=== PATIENT | female | born 1965 | race Two or more races ===

== ENCOUNTER → 2017-10-23 14:36 | Outpatient (CLI) | payer OTHER ==
[~2017-10-23 14:36] MED LIST: GLUCOPHAGE XR500 MG; GLUCOTROL10 MG; HYZAAR 50-12.1 UDTAB; LANTUS100 U/ML
== END | disposition home or self-care (01) ==
LOC: LAB 14:36
DX: D50.8 Other iron deficiency anemias (principal)

== ENCOUNTER 2018-04-28 07:19 | Outpatient (CLI) | payer OTHER | END 2018-04-28 11:14 | disposition home or self-care (01) | LOC: NUCLEAR 07:19 | DX: E04.2 Nontoxic multinodular goiter (principal) | CPT/HCPCS: 78013; A9512 ==

== ENCOUNTER 2018-05-01 08:01 | Outpatient (CLI) | payer OTHER | END 2018-05-01 08:08 | disposition home or self-care (01) | LOC: SONOGRAMA 08:01 | DX: E04.2 Nontoxic multinodular goiter (principal) ==

== ENCOUNTER 2018-05-14 11:00 | Outpatient (CLI) | payer OTHER ==
[2018-05-15] MEDS ORDERED: WELLBUTRIN SR150 MG PO (11:37)
[2018-05-15] MEDS ORDERED: SEROQUEL XR150 MG PO (11:37)
[2018-05-15] MEDS ORDERED: CLONAZEPAM2 M1 PO (11:37)
[2018-05-15] MEDS ORDERED: SYNTHROID50 MCG PO (11:38)
[2018-05-15] MEDS ORDERED: METFORMIN HCL500 MG PO (11:38)
[2018-05-15] MEDS ORDERED: CARAFATE1 GM PO (11:38)
[2018-05-22] MEDS ORDERED: PERCOCET 5-3251 EACH PO (08:18)
[2018-05-22] MEDS ORDERED: RECTICARE30 GM TOP (08:19)
== END 2018-05-14 11:07 | disposition home or self-care (01) ==
LOC: EKG 11:00 → LAB 11:00 → EKG 11:07
DX: Z01.810 Encounter for preprocedural cardiovascular examination (principal)

== ENCOUNTER → 2018-05-22 | Day surgery (SDC) | payer OTHER ==
[~2018-05-22] MED LIST changes: +CARAFATE1 GM PO; +CLONAZEPAM2 M1 PO; +METFORMIN HCL500 MG PO; +PERCOCET 5-3251 EACH PO; +RECTICARE30 GM TOP; +SEROQUEL XR150 MG PO; +SYNTHROID50 MCG PO; +WELLBUTRIN SR150 MG PO
== END | disposition home or self-care (01) ==
LOC: ADM 05-14 07:00 → CIR.AMB 05:12
DX: D12.9 Benign neoplasm of anus and anal canal (principal)

== ENCOUNTER 2019-02-19 10:15 | Inpatient (IN) | payer OTHER ==
[~2019-02-19 10:15] MED LIST changes: +JANUMET 50-1,01 EACH PO; +MULTIVITAMINS1 EAC9 PO; +PROTONIX20 MG PO; +RESTORIL PO; +[UNRECOGNIZED DRUG - OTHER] PO
[2019-02-20] MEDS ORDERED: RESTORIL30 MG PO (07:45)
[2019-02-22] MEDS ORDERED: NEURONTIN300 MG PO (10:28)
[2019-02-22] MEDS ORDERED: PERCOCET 5-3251 EACH PO (10:28)
== END 2019-02-22 11:33 | disposition home or self-care (01) | DRG 355 ==
LOC: CIR.AMB 10:15 → SURH 19:12
PROVIDERS: ADMIT Surgery
PROC: 0WUF4JZ Supplement Abdominal Wall with Synthetic Substitute, Percutaneous Endoscopic Approach (ICD-10-PCS; 2019-02-19)
PROC: 0KXL0Z6 Transfer Left Abdomen Muscle, Transverse Rectus Abdominis Myocutaneous Flap, Open Approach (ICD-10-PCS; 2019-02-19)
PROC: 0KXK0Z6 Transfer Right Abdomen Muscle, Transverse Rectus Abdominis Myocutaneous Flap, Open Approach (ICD-10-PCS; 2019-02-19)
PROC: 0WUF4JZ Supplement Abdominal Wall with Synthetic Substitute, Percutaneous Endoscopic Approach (ICD-10-PCS; principal; 2019-02-19 13:45)
DX: K43.0 Incisional hernia with obstruction, without gangrene (principal); K42.0 Umbilical hernia with obstruction, without gangrene; E11.9 Type 2 diabetes mellitus without complications; I10 Essential (primary) hypertension; K21.9 Gastro-esophageal reflux disease without esophagitis; E03.8 Other specified hypothyroidism; F41.0 Panic disorder [episodic paroxysmal anxiety]; E78.49 Other hyperlipidemia; Z98.84 Bariatric surgery status

== ENCOUNTER 2019-03-06 09:49 | Outpatient (CLI) | payer OTHER ==
[~2019-03-06 09:49] MED LIST changes: +NEURONTIN300 MG PO; +RESTORIL30 MG PO
== END 2019-03-06 15:00 | disposition home or self-care (01) ==
LOC: LAB 09:49
DX: N76.1 Subacute and chronic vaginitis (principal); N39.0 Urinary tract infection, site not specified; N74 Female pelvic inflammatory disorders in diseases classified elsewhere; D25.0 Submucous leiomyoma of uterus

== ENCOUNTER 2019-03-06 12:21 | Outpatient (CLI) | payer OTHER | END 2019-03-06 12:30 | disposition home or self-care (01) | LOC: SONOGRAMA 12:21 | DX: N74 Female pelvic inflammatory disorders in diseases classified elsewhere (principal); D25.0 Submucous leiomyoma of uterus ==

== ENCOUNTER → 2019-03-24 07:43 | Outpatient (CLI) | payer OTHER | END | disposition home or self-care (01) | LOC: LAB 07:43 | DX: R10.2 Pelvic and perineal pain (principal) ==

== ENCOUNTER 2019-03-24 10:02 | Outpatient (CLI) | payer OTHER | END 2019-03-24 10:06 | disposition home or self-care (01) | LOC: MRI 10:02 | DX: R10.2 Pelvic and perineal pain (principal); K57.33 Diverticulitis of large intestine without perforation or abscess with bleeding | CPT/HCPCS: 72197; 74183; A9575; 72196; 74182 ==

== ENCOUNTER 2019-11-11 07:52 | Outpatient (CLI) | payer OTHER | END 2019-11-11 08:23 | disposition home or self-care (01) | LOC: LAB 07:52 | DX: R94.5 Abnormal results of liver function studies (principal) ==

== ENCOUNTER 2019-11-11 10:09 | Outpatient (CLI) | payer OTHER | END 2019-11-11 10:16 | disposition home or self-care (01) | LOC: SONOGRAMA 10:09 | DX: E04.2 Nontoxic multinodular goiter (principal); K76.0 Fatty (change of) liver, not elsewhere classified; R94.5 Abnormal results of liver function studies; K81.9 Cholecystitis, unspecified ==

== ENCOUNTER 2020-03-03 11:13 | Outpatient (CLI) | payer OTHER | END 2020-03-03 11:17 | disposition home or self-care (01) | LOC: SONOGRAMA 11:13 | PROVIDERS: ATTEND Pathology Anatomic Pathology & Clinical Pathology | DX: E04.2 Nontoxic multinodular goiter (principal) ==

== ENCOUNTER → 2022-04-25 07:21 | Outpatient (CLI) | payer OTHER | END | disposition home or self-care (01) | LOC: NUCLEAR 07:00 | PROVIDERS: ATTEND Internal Medicine | DX: E04.2 Nontoxic multinodular goiter (principal); Z88.6 Allergy status to analgesic agent; Z91.040 Latex allergy status | CPT/HCPCS: 78014; A9512 ==

== ENCOUNTER 2022-11-08 08:33 | Outpatient (CLI) | payer OTHER | END 2022-11-08 08:36 | disposition home or self-care (01) | LOC: SONOGRAMA 08:33 | PROVIDERS: ATTEND Pathology Anatomic Pathology & Clinical Pathology | DX: D44.0 Neoplasm of uncertain behavior of thyroid gland (principal); E07.9 Disorder of thyroid, unspecified; E04.2 Nontoxic multinodular goiter ==

== ENCOUNTER 2022-12-05 07:30 | Outpatient (CLI) | payer OTHER | END 2022-12-05 07:31 | disposition home or self-care (01) | LOC: NUCLEAR 07:30 | PROVIDERS: ATTEND Internal Medicine | DX: E04.2 Nontoxic multinodular goiter (principal) | CPT/HCPCS: 78014; A9512 ==

== ENCOUNTER 2024-09-10 23:28 | Inpatient (IN) | payer OTHER ==
[~2024-09-10] VITALS: Ht 170.2 cm; Wt 77.1 kg
--- NOTE | 2024-09-10 23:47 | NUR ---
PACIENTE TRAIDO EN AMBULANCIA LA MISMA REFIERE DOLOR ABDOMINAL DESDE HOY.
[2024-09-11] MEDS ORDERED: 0.9 % SODIUM CHLORIDE 1,000 ML IV STA (01:41)
[2024-09-11] MEDS ORDERED: PROMETHAZINE HCL 50 MG/ML AMPUL IM STA (01:42)
[2024-09-11] MEDS ORDERED: MEPERIDINE HCL/PF 50 MG/ML VIAL IM STA (01:42)
[2024-09-11] MEDS ORDERED: HYOSCYAMINE SULFATE 0.125 MG TAB.SUBL SL ONE (01:45)
[2024-09-11 02:18] LABS: HEMATOCRIT 36.3 % (36.0-45.00); HEMOGLOBIN 12.5 g/dL (12.0-15.00); MEAN CELL VOLUME 88.7 fL (80.00-100.00); MEAN CORPUSCULAR HEMOGLOBIN 30.5 pg (27.00-32.0); MEAN CORPUSCULAR HGB CONC 34.3 g/dl (32.0-36.0); PLATELET COUNT 289 K/uL (150-450); RED BLOOD COUNT 4.09 M/uL (4.00-6.00); RED CELL DISTRIBUTION WIDTH 13.7 % (11.5-14.5)
--- NOTE | 2024-09-11 02:42 | NUR ---
SE EDUCA PACIENTE SOBRE EL [place] MEDICO Y ESTA REFIERE ENTENDER. SE CANALIZA Y SE ADMINITRA MEDICAMENTOS SHYLA ORDEN EMDICA. SE SCARLETT MUESTRAS DE LABORATORIOS Y SE ENVIAN. PENDIENTE A PLACA
[2024-09-11 02:43] LABS: CALCIUM 9.3 mg/dL (8.5-10.1); CREATININE SERUM 0.82 mg/dL (0.55-1.02); GFR 71.35; POTASSIUM 4.53 mEq/L (3.5-5.1)
--- NOTE | 2024-09-11 05:02 | NUR ---
SE EDUCA A PACIENTE SOBRE TRATAMIENTO MEDICO DE NASO GASTRICO EL CUAL AL MOMENTO PACIENTE REFIERE REHUSAR. SE EDUCA SOBRE IMPORTANCIA DEL MISMO Y LA MISMA REFIERE QUE DESEA ESPERAR.
--- NOTE | 2024-09-11 07:15 | NUR ---
SE RECIBE PTE ALERTA Y ORIENTADA X3 LA MISMA EN TOSHIA BAJA POR SEGURIDAD, SE OBSERVA CANALIZACION PATENTEN EN BRAZO DERECHO POR DONDE BAJA IVFLUIDS JULIA ORDEN MEDICA. SE REALIZAN VITALES Y SE DOCUMENTAN EN SISTEMA. SE NOTIFICA A DR DE LEON QUE APCIENTE PRESENTA DOLOR ABDOMINAL. EL REFIERE QUE PTE NECESITA NGT Y EDUCA A PTE SOBRE EL MISMO, PTE REFIERE ENTENDER. CURTIS WAYNE EJECUTA PROCESO.
--- NOTE | 2024-09-11 07:40 | NUR ---
SE INSERTA NGT EN GLADIS RT BAJO MEDIDAS ASEPTICAS SIN DIFICULTAD,PATENTE Y SE CONECTA @ [facility] AL [place] SIN EGRESO.
[2024-09-11] MEDS ORDERED: PANTOPRAZOLE SODIUM 80 MG in 0.9 % SODIUM CHLORIDE 100 ML IV SCH (11:15)
[2024-09-11] MEDS ORDERED: 0.9 % SODIUM CHLORIDE 1,000 ML IV SCH (11:30)
[2024-09-11] MEDS ORDERED: DEXTROSE 50 % IN WATER 0.5 G/ML DISP.SYRIN IV PRN (11:45)
[2024-09-11] MEDS ORDERED: MEPERIDINE HCL/PF 50 MG/ML VIAL IM PRN (11:45)
[2024-09-11] MEDS ORDERED: INSULIN LISPRO 1,000 UNIT/10 ML UNITS SUBCUTANEO PRN (11:45)
[2024-09-11] MEDS ORDERED: PIPERACILLIN/TAZOBACTAM SODIUM 3.375 GM in 0.9 % SODIUM CHLORIDE 100 ML IV SCH (12:00)
[2024-09-11] MEDS ORDERED: LORazepam 2 MG/ML VIAL IV SCH ×2 (13:00→21:00)
[2024-09-11 13:13] LABS: INR 1.09; PARTIAL THROMBOPLASTIN TIME 28.2 SECONDS (22.0-34.0); PROTHROMBIN TIME 11.8 SECONDS (9.0-11.5)
[2024-09-11 13:22] LABS: PH,URINE 6.5 (5.0-8.0); URINE APPEARANCE Clear; URINE BILIRRUBIN Negative (NEGATIVE); URINE BLOOD Negative; URINE COLOR Yellow; URINE GLUCOSE Negative (NEGATIVE); URINE KETONE Negative (NEGATIVE); URINE LEUKOCYTE Trace; URINE NITRATE Negative; URINE PROTEIN Negative (NEGATIVE); URINE UROBILINOGEN 0.2 E.U./dl
[2024-09-11 13:23] LABS: URINE BACTERIA 25.7 uL (0.0-1933); URINE EPITHELIAL CELLS 9.4 uL (0.0-38.8); URINE WBC 11.8 uL (0.0-23.2)
[2024-09-11 13:45] LABS: URINE CAST 0.14 uL (0.0-1.40)
[2024-09-11 15:33] VITALS: BP 118/77; O2SAT 97
[2024-09-11] MEDS ORDERED: MULTIVIT INFUSN,ADULT 4,VIT K 10 ML VIAL IV SCH (17:55)
[2024-09-11] MEDS ORDERED: DEXTROSE 5 % AND 0.9 % NACL 1,000 ML IV SCH (17:55)
[2024-09-11] MEDS ORDERED: ONDANSETRON HCL 4 MG in DEXTROSE 5 % IN WATER 50 ML IV SCH (17:56)
[2024-09-11 21:51] VITALS: BP 134/62; O2SAT 98
[2024-09-12 00:57] VITALS: BP 142/81; O2SAT 100
[2024-09-12 08:00] VITALS: BP 115/75; O2SAT 96
[2024-09-12 16:08] VITALS: BP 122/66; O2SAT 95
[2024-09-12] MEDS ORDERED: AA 4.25%/CAL/LYTES/DEXT 5% 1,000 ML PERIFERAL SCH (17:00)
[2024-09-13 00:18] VITALS: BP 108/70; O2SAT 95
[2024-09-13 07:38] LABS: CALCIUM 8.7 mg/dL (8.5-10.1); CHOL HDL RATIO 1.8 (0-5.0); CREATININE SERUM 0.64 mg/dL (0.55-1.02); GFR 94.98; POTASSIUM 4.44 mEq/L (3.5-5.1)
[2024-09-13 08:00] VITALS: BP 129/71; O2SAT 96
[2024-09-13 16:02] VITALS: BP 128/67; O2SAT 96
[2024-09-14 00:09] VITALS: BP 102/59; O2SAT 94
[2024-09-14 07:17] LABS: HEMATOCRIT 34.7 % (36.0-45.00); MEAN CELL VOLUME 88.9 fL (80.00-100.00); MEAN CORPUSCULAR HEMOGLOBIN 30.8 pg (27.00-32.0); MEAN CORPUSCULAR HGB CONC 34.6 g/dl (32.0-36.0); PLATELET COUNT 252 K/uL (150-450); RED CELL DISTRIBUTION WIDTH 13.7 % (11.5-14.5)
[2024-09-14 07:44] LABS: INR 1.09; PARTIAL THROMBOPLASTIN TIME 27.1 SECONDS (22.0-34.0); PROTHROMBIN TIME 11.8 SECONDS (9.0-11.5)
[2024-09-14 08:25] LABS: ALBUMIN 3.1 gm/dL (3.4-5.0); BILIRUBIN TOTAL 0.71 mg/dL (0.3-1.2); CALCIUM 8.8 mg/dL (8.5-10.1); CREATININE SERUM 0.64 mg/dL (0.55-1.02); GFR 94.98; GLOBULINA 4.2 G/DL (2.4-3.5); POTASSIUM 3.86 mEq/L (3.5-5.1); TOTAL PROTEIN 7.3 gm/dL (6.4-8.2)
[2024-09-14 08:33] LABS: ALBUMIN 3.2 gm/dL (3.4-5.0); BILIRUBIN TOTAL 0.69 mg/dL (0.3-1.2); BILIRUBIN,CONJUGATED 0.22 mg/dL (0.0-0.2); BILIRUBIN,UNCONJUGATED 0.47 mg/dL (0.0-0.6); CALCIUM 8.7 mg/dL (8.5-10.1); CHOL HDL RATIO 1.8 (0-5.0); CREATININE SERUM 0.61 mg/dL (0.55-1.02); GFR 100.39; MAGNESIUM 1.7 mg/dL (1.8-2.4); POTASSIUM 3.88 mEq/L (3.5-5.1); TOTAL PROTEIN 7.2 gm/dL (6.4-8.2)
[2024-09-14 10:08] LABS: UREA CLEARANCE 48.3 ML/MIN
[2024-09-14 10:13] VITALS: BP 117/65; O2SAT 95
[2024-09-14] MEDS ORDERED: MAGNESIUM SULFATE IN WATER 4 GM/100 ML PIGGYBACK IV NR (11:00)
[2024-09-14] MEDS ORDERED: DIATRIZOATE MEGLUMINE, SODIUM 30 ML BOTTLE PO NR (12:00)
[2024-09-14 17:00] VITALS: BP 147/77; O2SAT 96
[2024-09-15] VITALS: BP 147/80; O2SAT 98
[2024-09-15 08:00] VITALS: BP 158/77; O2SAT 98
[2024-09-15 16:00] VITALS: BP 137/66; O2SAT 98
[2024-09-15] MEDS ORDERED: SYNTHROID50 MCG PO (18:15)
[2024-09-15] MEDS ORDERED: WELLBUTRIN SR150 MG PO (18:15)
[2024-09-15] MEDS ORDERED: PROTONIX40 MG PO (18:15)
[2024-09-15] MEDS ORDERED: SEROQUEL XR150 MG PO (18:15)
[2024-09-15] MEDS ORDERED: CLONAZEPAM2 M1 PO (18:15)
[2024-09-15] MEDS ORDERED: CARAFATE1 GM/10 ML PO (18:15)
[2024-09-15] MEDS ORDERED: RESTORIL30 MG PO (18:15)
== END 2024-09-15 23:58 | disposition home or self-care (01) | DRG 389 ==
LOC: ER 23:28 → SEC-K 09-11 11:40 → SURH 09-11 19:26
PROVIDERS: General Practice; Internal Medicine; ADMIT Internal Medicine; ATTEND Internal Medicine
PROC: BW21ZZZ Computerized Tomography (CT Scan) of Abdomen and Pelvis (ICD-10-PCS; principal; 2024-09-11)
PROC: 0DH68UZ Insertion of Feeding Device into Stomach, Via Natural or Artificial Opening Endoscopic (ICD-10-PCS; 2024-09-11)
PROC: BW21ZZZ Computerized Tomography (CT Scan) of Abdomen and Pelvis (ICD-10-PCS; 2024-09-14)
PROC: 02HV33Z Insertion of Infusion Device into Superior Vena Cava, Percutaneous Approach (ICD-10-PCS; 2024-09-14)
DX: K56.690 Other partial intestinal obstruction (principal); K90.49 Malabsorption due to intolerance, not elsewhere classified; E03.9 Hypothyroidism, unspecified; E11.9 Type 2 diabetes mellitus without complications; E78.49 Other hyperlipidemia; Z79.4 Long term (current) use of insulin; E83.42 Hypomagnesemia

== ENCOUNTER 2025-04-07 07:38 | Emergency (ER) | payer OTHER ==
[~2025-04-07] VITALS: Ht 165.1 cm; Wt 77.1 kg
[~2025-04-07 07:38] MED LIST changes: +CARAFATE1 GM/10 ML PO; +PROTONIX40 MG PO
[2025-04-07] MEDS ORDERED: ATIVAN2 M1 PO (07:49)
[2025-04-07] MEDS ORDERED: SEROQUEL50 MG PO (07:49)
[2025-04-07 09:18] LABS: BASO % 0.9 % (0.1-1.2); EOS # 0.18 (0.04-0.54); EOS % 3.9 % (0.7-7.0); LYMPH # 1.47 (1.18-3.74); LYMPH % 31.9 % (19.3-53.1); MEAN PLATELET VOLUME 9.50 fl (9.4-12.4); MONO # 0.25 (0.24-0.82); MONO % 5.4 % (4.7-12.5); NEUT # 2.66 (1.56-6.13); NEUT % 57.7 % (34.0-71.1); RED CELL DISTRIBUTION WIDTH 14.4 % (11.6-14.4)
[2025-04-07 09:22] LABS: ERYTHROCYTE SEDIMENTATION RATE 32 mm/hr (0-30)
[2025-04-07 09:44] LABS: D DIMER 1.29 MG/L; INR 1.07
[2025-04-07 09:50] LABS: ALT/SGPT 19.0 U/L (12-78); AST/SGOT 14.0 U/L (15-37); BILIRUBIN TOTAL 0.33 mg/dL (0.3-1.2); BUN CREA RATIO 21.0 (7.0-25.0); CREATININE SERUM 0.73 mg/dL (0.55-1.02); GFR 81.6; GLOBULINA 4.5 G/DL (2.4-3.5); GLUCOSE FASTING 105.0 mg/dL (65-100); OSMOLALITY SERUM 284.0 MOSM/KG (275-295)
[2025-04-07] MEDS ORDERED: XARELTO10 MG PO (11:51)
[2025-04-07 13:03] VITALS: BP 126/82; O2SAT 98
== END 2025-04-07 13:04 | disposition home or self-care (01) ==
LOC: ER 07:44
PROVIDERS: General Practice
DX: M79.661 Pain in right lower leg (principal); Z88.6 Allergy status to analgesic agent; Z91.040 Latex allergy status